=== PATIENT | male | born 1975 | race Caucasian/White ===

== ENCOUNTER 2020-06-19 16:20 | Emergency (ER) | payer SELFPAY ==
[~2020-06-19] VITALS: Ht 177.8 cm; Wt 102.3 kg
[2020-06-19 16:22] VITALS: BP 115/84
== END 2020-06-19 17:33 | disposition left against medical advice (07) ==
LOC: EMS 16:23
DX: M25.532 Pain in left wrist (principal); Z53.21 Procedure and treatment not carried out due to patient leaving prior to being seen by health care provider